=== PATIENT | female | born 1970 | race Caucasian/White ===

== ENCOUNTER 2016-12-09 09:07 | Emergency (ER) | payer OTHER ==
[~2016-12-09] VITALS: Ht 172.7 cm; Wt 90.7 kg
[2016-12-09 09:08] VITALS: BP_SYST 131
[2016-12-09] MEDS ORDERED: NACL 0.9% 1,000 ML IV ONE (09:15)
[2016-12-09] MEDS ORDERED: FOLIC ACID 1 MG, THIAMINE HCL 100 MG, MAGNESIUM SULFATE 1 GM, MVI 10 ML in NACL 0.9% 1,... IV ONE (09:24)
[2016-12-09] MEDS ORDERED: LORazepam 2 MG/ML VIAL IVP ONE (09:30)
[2016-12-09] MEDS ORDERED: LORazepam 2 MG/ML VIAL (FOR ER USE) ONE (09:36)
[2016-12-09 09:53] LABS: HEMATOCRIT 47.3 % (36-48); HEMOGLOBIN 15.5 g/dL (12.0-16.0); MEAN CORPUSCULAR HEMOGLOBIN 33 pg (27-31); MEAN CORPUSCULAR HGB CONC 33 % (32-36); MEAN CORPUSCULAR VOLUME 100 fL (79.0-98.0); PLATELET COUNT (AUTO) 133 K/uL (130-430); RED BLOOD CELL COUNT(AUTO) 4.74 MIL/uL (4.2-6.2); RED CELL DISTRIBUTION WIDTH 12.6 % (9.0-15.0); WHITE BLOOD COUNT (AUTO) 14.3 K/uL (4.8-10.8)
[2016-12-09 09:57] LABS: ALANINE AMINOTRANSFERASE 150 U/L (12-78); ALBUMIN 4.1 g/dL (3.4-4.8); ANION GAP 22 (5-15); ASPARTATE AMINOTRANSFERASE 111 U/L (10-37); CALCIUM 9.2 mg/dL (8.4-11.0); CHLORIDE 95 mmol/L (98-107); GLUCOSE 133 mg/dL (70-99); POTASSIUM 3.5 mmol/L (3.5-5.1); SODIUM SERUM 134 mmol/L (136-145); TOTAL BILIRUBIN 3.1 mg/dL (0.0-1.0); UREA NITROGEN, BLOOD 21 mg/dL (8-21)
[2016-12-09 10:00] LABS: CREATININE 1.36 mg/dL (0.55-1.30); GFR AFRICAN AMERICAN 54 mL/min (>90)
[2016-12-09 10:01] LABS: ALCOHOL, BLOOD < 3 mg/dL (<10)
[2016-12-09 10:02] LABS: ACETAMINOPHEN < 1 ug/mL (1-30)
[2016-12-09 10:28] LABS: BAND % (MANUAL) 8 % (0-6); BASOPHILS % (MANUAL) 0 % (0-2); EOSINOPHILS % (MANUAL) 0 % (0-7); LYMPHOCYTES % (MANUAL) 9 % (20-46); MONOCYTES % (MANUAL) 3 % (0-11)
[2016-12-09] MEDS ORDERED: HYDROmorphone 1 MG INJ. 1 MG/ML AMPUL IVP ONE (11:00)
[2016-12-09] MEDS ORDERED: ONDANSETRON 4 MG ODT TAB PO ONE (11:30)
[2016-12-09 11:51] VITALS: BP_SYST 114
== END 2016-12-09 11:52 | disposition home or self-care (01) ==
LOC: SED 09:07
DX: F10.239 Alcohol dependence with withdrawal, unspecified (principal); I10 Essential (primary) hypertension; F41.9 Anxiety disorder, unspecified; Y90.0 Blood alcohol level of less than 20 mg/100 ml
CPT/HCPCS: 36415; 80053; 85007; 85027; 96361; 96365; 96366; 96375; 99285; G0480; G0481; G0482; J2060; J3411; J3475; J3490; J7030; Q0162; J1170